=== PATIENT | male | born 1945 | race Caucasian/White ===

== ENCOUNTER 2016-12-30 14:45 | Emergency (ER) | payer MEDICARE, BC ==
[~2016-12-30] VITALS: Ht 190.5 cm; Wt 99.0 kg
[2016-12-30 14:51] VITALS: BP 152/92; PULSE 82; RESP 18; TEMP 97.8; O2SAT 95
[2016-12-30] MEDS ORDERED: METH2.5T PO (15:20)
[2016-12-30] MEDS ORDERED: JALYCAP PO (15:20)
[2016-12-30] MEDS ORDERED: FOLI1TAB4 PO (15:20)
[2016-12-30] MEDS ORDERED: BUPIVACAINE HCL PF 0.5% 10 ML VIAL INFIL ONE (15:45)
[2016-12-30] MEDS ORDERED: TETANUS/DIPHTHERIA TOXOID ADULT 0.5 ML VIAL IM ONE (15:45)
[2016-12-30] MEDS ORDERED: LIDOCAINE HCL 1% 50 ML VIAL INFIL ONE (15:45)
--- NOTE | 2016-12-30 16:21 | PD ---
HPI Chief Complaint: Laceration/Skin Injury Time Seen by Provider: 15:25 Travel History International Travel<30 days: No Contact w/Intl Traveler<30days: No Traveled to known affect area: No History of Present Illness HPI 71-year-old male presents to the emergency room for evaluation of laceration to his right fourth finger. Patient was moving a rock when his finger got caught between the rock and the wall. He reports immediate and severe bleeding. Patient states the wound is stinging. He applied pressure and came to the emergency room. Unknown last tetanus. Denies loss of sensation or bony tenderness the finger. 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 Afebrile. Ambulatory. SKIN: Focused skin assessment warm/dry. There is a 2 semicircular circular avulsion with intact skin flap on the right fourth, volar finger. HEAD: Normocephalic. EYES: No scleral icterus. No injection or drainage. NECK: Supple, trachea midline. No JVD or lymphadenopathy. CARDIOVASCULAR: Regular rate and rhythm without murmurs, gallops, or rubs. RESPIRATORY: Breath sounds equal bilaterally. No accessory muscle use. PSYCHIATRIC: No delusional thought processes. No hallucinations. Data Data Last Documented VS Vital Signs Date Time Temp Pulse Resp B/P Pulse Ox O2 Delivery O2 Flow Rate FiO2 12/30/16 14:51 97.8 82 18 152/92 95 Orders Bupivacaine Pf 0.5% Inj (Marcaine Pf 0.5 (12/30/16 15:45) Lidocaine 1% Inj (50 Ml) (Xylocaine 1% I (12/30/16 15:45) Tetanus/Diphtheria Tox Adult (Tetanus/Di (12/30/16 15:45) MDM Medical Decision Making Medical Screen Exam Complete: Yes Emergency Medical Condition: Yes Medical Record Reviewed: Yes Differential Diagnosis Laceration versus avulsion versus abrasion Narrative Course 71-year-old male presents to the emergency room for evaluation of laceration to his right fourth finger that occurred just prior to arrival. Patient cut his finger on a rock. Physical exam reveals an avulsion with a skin flap intact. Less than 2 second capillary refill distally. The laceration is superficial without complication. It was repaired, see procedure note for details. Patient discharged with wound care instructions and told to follow up with a primary care physician or return to the emergency room for signs and symptoms. He understands and agrees to plan. Procedures Procedure Narrative LACERATION LOCATION: Right fourth finger LENGTH: 2 cm circular NUMBER OF STITCHES/MELANIE: 5 simple interrupted REPAIR: The area of the laceration was prepped with Betadine and sterilely draped. Digital block was performed using 0.5% bupivacaine and 1% lidocaine. The wound was copiously irrigated and explored without evidence of foreign body , tendon injury or neurovascular injury. The wound was closed using 5-0 Prolene. This was a single layer repair. A sterile dressing was applied. The patient was advised to keep the dressing clean and dry. Patient tolerated the procedure well. Diagnosis Primary Impression: Finger laceration Qualified Code: S61.219A - Finger laceration, initial encounter Referrals: Primary Care Physician Patient Instructions: Finger Laceration (ED), General Instructions Additional Instructions: Rest and drink plenty of fluids. Keep wound clean and dry. Apply triple antibiotic ointment daily. Return in 7- 10 days to have sutures removed. Follow-up with a primary care physician. Return to the emergency room for worsening symptoms. Disposition: 01 DISCHARGE HOME Condition: Stable Darline Romo December 30, 2016 16:21
== END 2016-12-30 16:30 | disposition home or self-care (01) ==
LOC: PHED 14:45
DX: S61.214A Laceration without foreign body of right ring finger without damage to nail, initial encounter (principal); W26.8XXA Contact with other sharp object(s), not elsewhere classified, initial encounter; W22.01XA Walked into wall, initial encounter; Y93.H9 Activity, other involving exterior property and land maintenance, building and construction; Y92.007 Garden or yard of unspecified non-institutional (private) residence as the place of occurrence of the external cause; Z23 Encounter for immunization
CPT/HCPCS: 12001; 90471; 90714